=== PATIENT | female | born 1995 | race Two or more races ===

== ENCOUNTER → 2021-06-23 | Outpatient (CLI) | payer BC ==
[~2021-06-23] MED LIST: FLUO-96 PO; OLAN2.5T25 PO; ONDA-83 PO
== END ==
LOC: M LABSMTC 10:33
PROVIDERS: ATTEND Anesthesiology
DX: Z01.818 Encounter for other preprocedural examination (principal); Z11.52 Encounter for screening for COVID-19

== ENCOUNTER 2021-06-28 09:57 | Day surgery (SDC) | payer BC ==
[~2021-06-28] VITALS: Ht 162.6 cm; Wt 100.2 kg
[~2021-06-28 09:57] MED LIST changes: +NS 1,000 ML IV ONE
[2021-06-28] MEDS ORDERED: LIDOCAINE 2% 100MG/5ML SDV (FOR ANES.) As Ordered ONE (10:33)
[2021-06-28] MEDS ORDERED: propofoL 200 MG/20 ML VIAL As Ordered ONE (10:33)
[2021-06-28 12:50] VITALS: BP 151/95
== END 2021-06-28 13:05 | disposition home or self-care (01) ==
LOC: M OPP 09:57
PROVIDERS: ATTEND Internal Medicine Gastroenterology
DX: K63.89 Other specified diseases of intestine (principal); K64.8 Other hemorrhoids; R93.3 Abnormal findings on diagnostic imaging of other parts of digestive tract; Z79.899 Other long term (current) drug therapy

== ENCOUNTER 2023-11-28 15:54 | Emergency (ER) | payer OTHER ==
[~2023-11-28] VITALS: Ht 162.6 cm; Wt 134.8 kg
[~2023-11-28 15:54] MED LIST changes: -NS 1,000 ML IV ONE
[2023-11-28 17:56] LABS: BASO # 0.1 10^3/uL (0.0-0.2); BASO % 0.2 % (0.0-1.0); EOS % 0.2 % (0.0-3.0); HEMATOCRIT 46.4 % (36.0-47.0); HEMOGLOBIN 15.9 g/dl (12.0-15.5); LYMPH # 2.7 10^3/uL (1.5-5.0); LYMPH % 12.1 % (24.0-44.0); MEAN CORPUSCULAR HEMOGLOBIN 28.8 pg (27.0-33.0); MEAN CORPUSCULAR HGB CONC 34.3 g/dl (32.0-36.5); MEAN CORPUSCULAR VOLUME 84.1 fl (80.0-96.0); MONO # 1.5 10^3/uL (0.0-0.8); MONO % 6.9 % (2.0-8.0); NEUTROPHILS # 17.5 10^3/uL (1.5-8.5); PLATELET COUNT, AUTOMATED 322 10^3/uL (150-450); RED BLOOD COUNT 5.52 10^6/uL (4.00-5.40); WHITE BLOOD COUNT 21.9 10^3/uL (4.0-10.0)
[2023-11-28 18:09] LABS: LIPASE 31 U/L (12-53)
[2023-11-28 18:11] LABS: ALBUMIN 4.5 G/DL (3.2-5.2); ALKALINE PHOSPHATASE 110 U/L (46-116); ALT/SGPT 165 U/L (7.0-40); AST/SGOT 64 U/L (<34); BILIRUBIN,DIRECT 0.5 MG/DL (<0.4); BILIRUBIN,TOTAL 1.4 MG/DL (0.3-1.2); BLOOD UREA NITROGEN 9 MG/DL (9-23); CALCIUM LEVEL 9.8 MG/DL (8.5-10.1); CARBON DIOXIDE LEVEL 22 MMOL/L (20-31); CHLORIDE LEVEL 105 MMOL/L (98-107); CREATININE FOR GFR 0.68 MG/DL (0.55-1.30); GLOMERULAR FILTRATION RATE > 60.0 (>60); GLUCOSE, FASTING 108 MG/DL (60-100); POTASSIUM SERUM 3.4 MMOL/L (3.5-5.1); SODIUM LEVEL 139 MMOL/L (136-145)
[2023-11-28 18:20] LABS: HCG, SERUM QUALITATIVE NEGATIVE (NEGATIVE)
[2023-11-28] MEDS: ONDANSETRON 4MG 2ML VIAL IV ONE (20:40)
[2023-11-28] MEDS: NS 1,000 ML IV ONE (20:40)
[2023-11-28 21:01] VITALS: BP 160/100; TEMP 97.6; O2SAT 97
[2023-11-28] MEDS ORDERED: KETOROLAC 60MG 2ML VIAL IM ONE (21:20)
[2023-11-28] MEDS ORDERED: predniSONE 20 MG TAB PO ONE (21:20)
== END 2023-11-28 21:22 | disposition left against medical advice (07) ==
LOC: M ED 15:54
DX: K51.019 Ulcerative (chronic) pancolitis with unspecified complications (principal); J45.909 Unspecified asthma, uncomplicated; F41.9 Anxiety disorder, unspecified; F32.A Depression, unspecified; F31.9 Bipolar disorder, unspecified; F43.10 Post-traumatic stress disorder, unspecified; F17.290 Nicotine dependence, other tobacco product, uncomplicated; F12.10 Cannabis abuse, uncomplicated; F10.10 Alcohol abuse, uncomplicated; Z79.899 Other long term (current) drug therapy; Z53.9 Procedure and treatment not carried out, unspecified reason
CPT/HCPCS: 80048; 80076; 83605; 83690; 84703; 85025; 96374; 99283; J2405

== ENCOUNTER 2024-10-25 12:16 | Emergency (ER) | payer OTHER ==
[~2024-10-25] VITALS: Ht 162.6 cm; Wt 118.2 kg
[~2024-10-25 12:16] MED LIST changes: -OLAN2.5T25 PO; +OLAN2.5T53 PO
[2024-10-25] MEDS ORDERED: OLANZapine ORAL DISINTEGRATING TAB 5MG PO PRN (12:40)
[2024-10-25 14:00] LABS: PLATELET COUNT, AUTOMATED 354 10^3/uL (150-450)
[2024-10-25 14:22] LABS: KETONE, URINE AUTO RFX 1+ mg/dL (NEGATIVE); LEUKOCYTE ESTERASE UR AUTO RFX NEGATIVE (NEGATIVE); MUCUS, URINE RFX LARGE (NEGATIVE); NITRITE, URINE AUTO RFX NEGATIVE (NEGATIVE); RBC, URINE AUTO RFX 44 /HPF (0-3); SQUAM EPITHELIAL CELL UR AURFX 1 /HPF (0-6); WBC, URINE AUTO RFX 3 /HPF (0-3)
[2024-10-25 14:24] LABS: ETHYL ALCOHOL (ETHANOL) < 0.003 % (0.000-0.010)
[2024-10-25 14:26] LABS: ALT/SGPT 46 U/L (7.0-40); AST/SGOT 29 U/L (<34); CALCIUM LEVEL 10.2 MG/DL (8.5-10.1); CARBON DIOXIDE LEVEL 22 MMOL/L (20-31); CHLORIDE LEVEL 106 MMOL/L (98-107); CREATININE FOR GFR 0.67 MG/DL (0.55-1.30); GLOMERULAR FILTRATION RATE > 90.0 (>60); POTASSIUM SERUM 3.9 MMOL/L (3.5-5.1); SALICYLATE LEVEL < 3.0 MG/DL (<30); SODIUM LEVEL 144 MMOL/L (136-145)
[2024-10-25 14:32] LABS: HCG, SERUM QUALITATIVE NEGATIVE (NEGATIVE)
[2024-10-25 14:50] LABS: AMPHETAMINES LEVEL URINE NEGATIVE (NEGATIVE); BARBITURATES URINE NEGATIVE (NEGATIVE); BENZODIAZEPINES URINE NEGATIVE (NEGATIVE); COCAINE METABOLITE URINE NEGATIVE (NEGATIVE); METHADONE URINE NEGATIVE (NEGATIVE); OPIATES URINE NEGATIVE (NEGATIVE); PHENCYCLIDINE URINE NEGATIVE (NEGATIVE)
[2024-10-25 14:53] LABS: CANNABINOIDS URINE POSITIVE (NEGATIVE)
[2024-10-25] MEDS ORDERED: MED REC CURRENTLY UNOBTAINABLE XX SCH (18:35)
[2024-10-25] MEDS: LORazepam 1 MG TAB PO STA (19:40)
[2024-10-25] MEDS ORDERED: IBUP-1022 PO (20:28)
[2024-10-25] MEDS ORDERED: BUSP10TA PO (20:28)
[2024-10-25] MEDS ORDERED: HOME MED LIST COMPLETE! XX SCH (20:30)
[2024-10-25] MEDS: ONDANSETRON 4MG ORAL DISINTEGRATING TAB PO PRN (22:50)
[2024-10-26] MEDS: ACETAMINOPHEN 325 MG TAB PO ONE ×2 (00:05→14:12)
[2024-10-27] MEDS: traZODone 50 MG TAB PO ONE (01:00)
[2024-10-27] MEDS: IBUPROFEN 600 MG TAB PO ONE (06:29)
[2024-10-27] MEDS ORDERED: IBUPROFEN 600 MG TAB PO PRN (08:00)
[2024-10-27 11:23] VITALS: BP 128/76; TEMP 98.2; O2SAT 98
== END 2024-10-27 12:11 ==
LOC: M ED 12:16
DX: R45.851 Suicidal ideations (principal); F31.30 Bipolar disorder, current episode depressed, mild or moderate severity, unspecified; F12.10 Cannabis abuse, uncomplicated; Z79.1 Long term (current) use of non-steroidal anti-inflammatories (NSAID); Z79.899 Other long term (current) drug therapy
CPT/HCPCS: 73130; 73630; 80048; 80076; 80143; 80307; 81001; 82077; 84443; 84703; 85027; 87635; 93005; 96372; 99285; J2060